=== PATIENT | male | born 1980 | race Hispanic/Latino ===

== ENCOUNTER 2017-01-01 06:22 | Emergency (ER) | payer SELFPAY ==
[2017-01-01 06:54] LABS: #Basophils 0.1 thou/uL (0.0-0.2); #Eosinphils 0.2 thou/uL (0.0-0.7); #Lymphocytes 1.8 thou/uL (1.20-3.40); #Monocytes 0.8 thou/uL (0.11-0.59); #Neutrophils 10.3 thou/uL (1.40-6.50); %Basophils 1.1 % (0.0-1.0); %Eosinophils 1.9 % (0.0-10.0); %Lymphocytes 13.4 % (21.0-51.0); %Monocytes 5.9 % (0.0-10.0); Hematocrit 50.7 % (42.0-52.0); Mean Platelet Volume 8.9 fL (7.4-10.4); White Blood Cell (WBC) Count 13.2 thou/uL (4.8-10.8)
[2017-01-01 07:12] LABS: ALT (SGPT) 43 U/L (8-55); AST (SGOT) 27 U/L (5-34); Alkaline Phosphatase 63 U/L (40-150); Anion Gap 15 mmol/L (10-20); BUN (Urea Nitrogen) 24 mg/dL (8.9-20.6); Bilirubin, Total 0.6 mg/dL (0.2-1.2); Calc. Creatinine Clearance 0 mL/min (70-130); Calcium 9.2 mg/dL (7.8-10.44); Carbon Dioxide 21 mmol/L (22-29); Chloride 106 mmol/L (98-107); Estimated GFR-MDRD 78; Globulin 3.8 g/dL (2.4-3.5); Protein, Total 7.9 g/dL (6.0-8.3)
[2017-01-01] MEDS ORDERED: Ondansetron HCl/PF 4 MG/2 ML Vial ONE (07:14)
[2017-01-01] MEDS ORDERED: Famotidine/PF 20 mg/2ml Vial ONE (07:14)
--- NOTE | 2017-01-01 09:41 | ULT ---
RIGHT UPPER QUADRANT SONOGRAM: HISTORY: Right upper quadrant pain. FINDINGS: Adherent to the posterior wall of the gallbladder is a nonshadowing echogenic focus. No other gallb ladder wall thickening or pericholecystic fluid is apparent. Echogenic material layers within the d ependent portion of the gallbladder lumen. Liver is diffusely hyperechoic without focal mass or int rahepatic biliary dilatation. No free fluid is visible. Common duct is 0.7 cm greatest diameter. IMPRESSION: 1. Biliary sludge is consistent with chronic gallbladder dyskinesis. 2. Small gallbladder wall polyp. 3. Hepatosteatosis. POS: [facility]
== END 2017-01-01 09:20 | disposition home or self-care (01) ==
LOC: SCSER 06:22
DX: K80.50 Calculus of bile duct without cholangitis or cholecystitis without obstruction (principal); I10 Essential (primary) hypertension; F32.9 Major depressive disorder, single episode, unspecified
CPT/HCPCS: 76705; 80053; 83690; 85025; 86140; 96361; 96374; 96375; J2270; J2405; S0028

== ENCOUNTER 2017-03-15 12:53 | Emergency (ER) | payer SELFPAY ==
[2017-03-15] MEDS ORDERED: Ondansetron ODT 4 MG TAB ONE (12:59)
[2017-03-15] MEDS ORDERED: Morphine 4 MG/ML Carpuject ONE ×2 (13:40→15:17)
[2017-03-15] MEDS ORDERED: Promethazine HCl 25 MG/ML VIAL ONE ×2 (13:40→15:17)
[2017-03-15 14:05] LABS: #Basophils 0.1 thou/uL (0.0-0.2); #Eosinphils 0.4 thou/uL (0.0-0.7); #Lymphocytes 1.2 thou/uL (1.20-3.40); #Neutrophils 11.8 thou/uL (1.40-6.50); %Basophils 0.4 % (0.0-1.0); %Eosinophils 2.5 % (0.0-10.0); %Lymphocytes 8.6 % (21.0-51.0); %Monocytes 6.7 % (0.0-10.0); Hematocrit 52.4 % (42.0-52.0); Mean Platelet Volume 7.7 fL (7.4-10.4); Red Blood Cell (RBC) Count 5.96 mill/uL (4.70-6.10); White Blood Cell (WBC) Count 14.4 thou/uL (4.8-10.8)
[2017-03-15 14:20] LABS: ALT (SGPT) 35 U/L (8-55); AST (SGOT) 20 U/L (5-34); Alkaline Phosphatase 75 U/L (40-150); Anion Gap 13 mmol/L (10-20); BUN (Urea Nitrogen) 15 mg/dL (8.9-20.6); Bilirubin, Total 0.8 mg/dL (0.2-1.2); Calc. Creatinine Clearance 0 mL/min (70-130); Calcium 9.7 mg/dL (7.8-10.44); Carbon Dioxide 23 mmol/L (22-29); Chloride 107 mmol/L (98-107); Estimated GFR-MDRD 85; Globulin 3.5 g/dL (2.4-3.5); Protein, Total 7.7 g/dL (6.0-8.3)
[2017-03-15] MEDS ORDERED: metroNIDAZOLE 500 MG/100 ML BAG ONE ×2 (14:29→14:36)
[2017-03-15] MEDS ORDERED: Ondansetron HCl/PF 4 MG/2 ML Vial ONE (15:17)
== END 2017-03-15 16:28 | disposition home or self-care (01) ==
LOC: SCSER 12:53
DX: E86.0 Dehydration (principal); K52.9 Noninfective gastroenteritis and colitis, unspecified; F32.9 Major depressive disorder, single episode, unspecified; F41.9 Anxiety disorder, unspecified; I10 Essential (primary) hypertension
CPT/HCPCS: 80053; 85025; 96365; 96366; 96367; 96375; 96376; 99406; J2270; J2405; J2550; Q0162